=== PATIENT | male | born 1975 | race Caucasian/White ===

== ENCOUNTER 2018-01-18 17:26 | Emergency (ER) | payer OTHER ==
[~2018-01-18] VITALS: Ht 182.9 cm; Wt 81.6 kg
--- NOTE | 2018-01-18 17:34 | ED SKIN/ALLERGY COMPLAINT ---
History of Present Illness General Chief Complaint: General Adult Stated Complaint: "IN A CRAWL SPACE. STARTED FEELING SICK" PER PT Source: patient Exam Limitations: no limitations Vital Signs & Intake/Output Vital Signs & Intake/Output Vital Signs Date Time Temp Pulse Resp B/P B/P Pulse O2 O2 Flow FiO2 Mean Ox Delivery Rate 01/18 2014 98.4 81 16 108/78 98 Room Air 01/18 2011 98.7 75 20 135/75 98 Room Air 01/18 1918 98 Room Air 01/18 1800 99 01/18 1732 98.0 100 22 98 Room Air Room Air 01/18 1730 144/88 ED Intake and Output 01/19 0000 01/18 1200 Intake Total Output Total Balance Patient 180 lb Weight Allergies Coded Allergies: Penicillins (ANAPHYLAXIS 01/18/18) venom-honey bee (ANAPHYLAXIS 01/18/18) Reconcile Medications Epinephrine (Epipen 2-Rangel) 0.3 MG/0.3 ML AUTO.INJCT 0.3 MG IM AD PRN ALLERGIC REACTION (Reported) Milk Thistle (Unknown Strength) CAPSULE (Unknown Dose) PO DAILY SUPPLEMENT ( Reported) Multiple Vitamin (Multivitamins) 1 EACH TABLET 1 TAB PO DAILY SUPPLEMENT ( Reported) Triage Nurses Notes Reviewed? yes Onset: Abrupt Duration: minute(s):, constant Timing: recent history HPI: 42-year-old male comes into the emergency room for further evaluation of feeling like his throat closing up difficulty breathing and feeling like a sandpaper in his throat. Patient reports that he was in a crawl space at work and when he came out about 40 minutes later he started to experience he symptoms. He is concerned he may have been exposed to something. Patient has been coughing nonstop. Since she's been coughing and developed some central chest pain and some back pain in his rib areas. He denies any vomiting. He complains of some associated shortness of breath. (Sergey Rosales) Past History Travel History Traveled to [place] past 21 day No Medical History Any Pertinent Medical History? see below for history Neurological: NONE EENT: NONE Cardiovascular: NONE Respiratory: asthma Gastrointestinal: NONE Hepatic: NONE Renal: NONE Musculoskeletal: NONE Psychiatric: NONE Endocrine: NONE Blood Disorders: NONE Cancer(s): NONE Surgical History Surgical History: none Psychosocial History What is your primary language [place] Tobacco Use: Quit >30 days ago ETOH Use: occasional use Illicit Drug Use: denies illicit drug use Family History Hx Contributory? No (Sergey Rosales) Review of Systems Review of Systems Constitutional: Reports: no symptoms. EENTM: Reports: see HPI. Respiratory: Reports: see HPI. Cardiovascular: Reports: no symptoms. GI: Reports: no symptoms. Genitourinary: Reports: no symptoms. Musculoskeletal: Reports: no symptoms. Skin: Reports: no symptoms. Neurological/Psychological: Reports: no symptoms. Hematologic/Endocrine: Reports: no symptoms. Immunologic/Allergic: Reports: no symptoms. All Other Systems: Reviewed and Negative (Sergey Rosales) Physical Exam Physical Exam General Appearance: well developed/nourished, mild distress Head: atraumatic Eyes: Bilateral: normal appearance. Ears, Nose, Throat: normal pharynx, normal ENT inspection, hearing grossly normal Neck: normal inspection Respiratory: normal breath sounds, no respiratory distress Cardiovascular: regular rate/rhythm Back: normal inspection Extremities: normal inspection, normal range of motion, no edema Neurologic/Psych: awake, alert, oriented x 3, normal mood/affect Skin: intact (Sergey Rosales) Progress Differential Diagnosis: allergic reaction, anaphylaxis Plan of Care: Orders Procedure Date/time Status TROPONIN LEVEL 01/18 2200 Complete EKG 01/18 2200 Active TROPONIN LEVEL 01/18 1817 Complete LIPASE 01/18 1817 Complete COMPREHENSIVE METABOLIC PANEL 01/18 1817 Complete CBC WITHOUT DIFFERENTIAL 01/18 1817 Complete EKG 01/18 1817 Active Laboratory Tests 01/18/18 2212: Troponin I < 0.01 01/18/18 1855: Anion Gap 12, Estimated GFR > 60, BUN/Creatinine Ratio 16.0, Glucose 98, Calcium 9.8, Total Bilirubin 0.9, AST 20, ALT 35, Alkaline Phosphatase 73, Troponin I < 0.01, Total Protein 7.1, Albumin 4.5, Globulin 2.6, Albumin/Globulin Ratio 1.7, Lipase 62, CBC w Diff NO MAN DIFF REQ, RBC 4.87, MCV 95.4 H, MCH 32.5 H, MCHC 34.0, RDW 12.8, MPV 8.7, Gran % 50.8, Lymphocytes % 37.3, Monocytes % 8.6, Eosinophils % 2.4, Basophils % 0.9, Absolute Granulocytes 4.2, Absolute Lymphocytes 3.1, Absolute Monocytes 0.7 H, Absolute Eosinophils 0.2, Absolute Basophils 0.1 Diagnostic Imaging: Viewed by Me: Radiology Read. Discussed w/RAD: Radiology Read. Radiology Impression: PATIENT: KIARA ABRRY PRESENT AGE: 42 PATIENT ACCOUNT NO: [id number] : 77 LOCATION: [facility] ORDERING PHYSICIAN: Sergey CAMPUZANO SERVICE DATE: 01/18/18 EXAM TYPE : RAD - XRY-CHEST XRAY, TWO VIEWS EXAMINATION: XR CHEST CLINICAL INFORMATION: Shortness of breath COMPARISON: 02/02/2012 TECHNIQUE: 2 views of the chest were obtained. FINDINGS: No significant abnormality is noted involving the heart, lungs, mediastinum, bony thorax or soft tissues. IMPRESSION: Unremarkable examination. DICTATED BY: Coleman Platt MD DATE/TIME DICTATED:01/18/181905 CORRECTIONAL SUPERVISOR:JERICHO DATE/TIME TRANSCRIBED:01/18/181905 CONFIDENTIAL, DO NOT COPY WITHOUT APPROPRIATE AUTHORIZATION. <Electronically signed in Other Vendor System> SIGNED BY: Coleman Platt MD 01/18/181914 Initial ED EKG: normal sinus rhythm, rate (82), nonspecific ST T wave chg Repeat EKG: unchanged (Yfn CAMPUZANO,Sergey) Departure Departure Disposition: HOME OR SELF CARE Condition: Stable Clinical Impression Primary Impression: Exposure to hazardous material Secondary Impressions: Atypical chest pain Referrals: Patient Has No Primary Care Dr Additional Instructions: Follow-up with primary care doctor. Return if any concerns worsening symptoms. Please go over all results of today's visit with your primary care doctor. Contact your primary care doctor to let them know you were here in the emergency room. There may be nonspecific findings which may not be related to your visit today here in the emergency room but may require further evaluation and chronic monitoring by your primary care doctor. If you had a laceration today the chance of foreign body always remains. You should follow-up with your primary care doctor for recheck in 3-5 days for a wound check. If you had an x-ray done there is a chance that a fracture could have been missed on initial read and you should follow-up with your primary care doctor for repeat x-rays if symptoms persist. If your blood pressure was elevated here in the emergency room please have rechecked by [facility] primary care doctor within the next 48. If you were prescribed a narcotic here in the emergency room or any type of controlled substances you're not allowed to drive while taking this medication or operate any type of heavy machinery. Narcotics can make you feel lightheaded dizziness nausea and can cause constipation. You may need to filler picker a stool softener. Thank you for choosing [facility] emergency room. Please return to the emergency room immediately if you have any other concerns worsening of symptoms. Departure Forms: Customer Survey General Discharge Information Comments 01/19/2018 1:05:24 AM Patient's symptoms completely resolved upon reevaluation. He was kept for 2 EKGs and 2 troponins which were negative. Patient had some type of exposure while in the crawl space. Heart score is 1. Patient is low risk. Patient can follow-up as an outpatient with his PCP. Return if any other concerns worsening symptoms. Patient understands and agrees with plan of care. (Sergey Rosales) PA/[employer] Co-Sign Statement Statement: ED Attending supervision documentation- I saw and evaluated the patient. I have also reviewed all the pertinent lab results and diagnostic results. I agree with the findings and the plan of care as documented in the PA's/[employer]'s documentation. x I have reviewed the ED Record and agree with the PA's/[employer]'s documentation. [] Additions or exceptions (if any) to the PAs/[employer]IST's note and plan are summarized below: [] (Marcell LANCE,Onofre)
[2018-01-18] MEDS ORDERED: EPIPEN 2-P0.3 MG/0.3 IM (18:45)
[2018-01-18] MEDS ORDERED: MULTIVITAMINS1 EAC9 PO (18:46)
[2018-01-18] MEDS ORDERED: MILK THISTLE500 M1 PO (18:46)
[2018-01-18 19:10] LABS: ABSOLUTE BASOPHIL COUNT 0.1 /CUMM (0.0-0.2); ABSOLUTE EOSINOPHIL COUNT 0.2 /CUMM (0.0-0.7); ABSOLUTE GRANULOCYTE CT 4.2 /CUMM (1.4-6.5); ABSOLUTE LYMPH COUNT 3.1 /CUMM (1.2-3.4); ABSOLUTE MONOCYTE COUNT 0.7 /CUMM (0.10-0.60); BASOPHIL % 0.9 % (0.0-2.0); EOSINOPHIL % 2.4 % (0-5); GRANULOCYTE % 50.8 % (42.2-75.2); HEMATOCRIT 46.5 % (42-52); MEAN CORPUSCULAR HGB 32.5 PG (27.0-31.0); MEAN CORPUSCULAR VOLUME 95.4 FL (80.0-94.0); MEAN PLATELET VOLUME 8.7 FL (7.4-10.4); PLATELET COUNT 197 /CUMM (130-400); RBC DISTRIBUTION WIDTH 12.8 % (11.5-14.5); RED BLOOD CELL CT 4.87 /CUMM (4.70-6.10); WHITE BLOOD CELL COUNT 8.3 /CUMM (4.8-10.8)
--- NOTE | 2018-01-18 19:15 | RADIOLOGY REPORT ---
EXAMINATION: XR CHEST CLINICAL INFORMATION: Shortness of breath COMPARISON: 02/02/2012 TECHNIQUE: 2 views of the chest were obtained. FINDINGS: No significant abnormality is noted involving the heart, lungs, mediastinum, bony thorax or soft tissues. IMPRESSION: Unremarkable examination.
[2018-01-18 20:14] VITALS: BP 108/78
== END 2018-01-18 23:59 ==
LOC: ERH 17:26
PROVIDERS: Physician Assistant Medical
DX: Z77.098 Contact with and (suspected) exposure to other hazardous, chiefly nonmedicinal, chemicals (principal); R07.89 Other chest pain
CPT/HCPCS: 1263; 71046; 93005; 93010; J1885